=== PATIENT | female | born 1975 | race Caucasian/White ===

== ENCOUNTER 2016-05-07 05:45 | Inpatient (IN) | payer OTHER ==
[2016-05-07] VITALS (17 sets, daily range): BP systolic 122–145; RESP 16–22; TEMP 97.1–99.1
[~2016-05-07] VITALS: Ht 172.7 cm; Wt 74.8 kg
[2016-05-07] MEDS ORDERED: BACITRACIN 50,000 UNITS INJ IRRIG ONE (09:25)
[2016-05-07] MEDS ORDERED: ROCURONIUM 50 MG VIAL IV ONE (09:33)
[2016-05-07] MEDS ORDERED: DILAUDID 1 MG/ML AMP IV ONE (09:33)
[2016-05-07] MEDS ORDERED: GLYCOPYRROLATE 0.2 MG/ML VIAL IV ONE (09:33)
[2016-05-07] MEDS ORDERED: ACETAMINOPHEN 1,000 MG/100 ML IV ONE (09:33)
[2016-05-07] MEDS ORDERED: ONDANSETRON 4 MG VIAL IV PUSH ONE (09:33)
[2016-05-07] MEDS ORDERED: LIDOCAINE 2% SYR 5 ML IV ONE (09:33)
[2016-05-07] MEDS ORDERED: DEXAMETHASONE 4 MG/ML VIAL IV ONE (09:33)
[2016-05-07] MEDS ORDERED: PROPOFOL 20 ML PER ML IV ONE (09:33)
[2016-05-07] MEDS ORDERED: NEOSTIGMINE 10 MG/10 ML VIAL IV ONE (09:33)
[2016-05-07] MEDS ORDERED: FENTANYL 100 MCG/2 ML AMP IV ONE (09:33)
[2016-05-07] MEDS ORDERED: MAG HYDROX 30 ML UDC PO PRN (10:10)
[2016-05-07] MEDS ORDERED: BISACODYL 10 MG SUPP RECTAL PRN (10:10)
[2016-05-07] MEDS ORDERED: SALINE FLUSH 10 ML FLUSH PRN (10:10)
[2016-05-07] MEDS ORDERED: MORPHINE 2 MG/ML SYR IV PRN (10:10)
[2016-05-07] MEDS ORDERED: BISACODYL EC 5 MG TAB PO PRN (10:10)
[2016-05-07] MEDS ORDERED: SODIUM CHLORIDE 0.9% 1,000 ML IV SCH (10:10)
[2016-05-07] MEDS ORDERED: OXYCODONE/APAP 7.5/325 TAB PO PRN (10:40)
[2016-05-07] MEDS: DILAUDID 1 MG/ML AMP IV PRN ×2 (11:38→20:37)
[2016-05-07] MEDS: ONDANSETRON 4 MG VIAL IV PRN ×2 (11:46→20:34)
[2016-05-07] MEDS ORDERED: DEXTROSE 50% SYRINGE 50 ML IV PRN (18:30)
[2016-05-07] MEDS ORDERED: GLUCAGON 1 MG VIAL IM PRN (18:30)
[2016-05-07] MEDS ORDERED: CEFAZOLIN 2,000 MG in SODIUM CHLORIDE 0.9% 100 ML IV ONE (19:25)
[2016-05-07] MEDS: SALINE FLUSH 10 ML FLUSH SCH (20:33)
[2016-05-08] VITALS (17 sets, daily range): BP systolic 129–162; RESP 16–20; TEMP 97.7–99.3
[2016-05-08] MEDS: ONDANSETRON 4 MG VIAL IV PRN ×2 (05:49→17:37)
[2016-05-08] MEDS ORDERED: LACT RINGERS 1,000 ML IV SCH (06:00)
[2016-05-08] MEDS ORDERED: MIDAZOLAM 2 MG/2 ML INJ IV ONE ×2 (06:00→07:15)
[2016-05-08] MEDS ORDERED: SODIUM CHLORIDE 0.9% FLUSH BAG 500 ML IV SCH (06:00)
[2016-05-08] MEDS ORDERED: LIDOCAINE 1% BUFFERED 1 ML SYR INTRADERM PRN (07:15)
[2016-05-08] MEDS: SALINE FLUSH 10 ML FLUSH SCH ×2 (08:00→20:00)
[2016-05-08] MEDS ORDERED: DILAUDID 1 MG/ML AMP IV PRN (08:30)
[2016-05-08] MEDS ORDERED: MORPHINE 4 MG/ML SYR IV PRN (08:30)
[2016-05-08] MEDS ORDERED: OXYCODONE 5 MG TAB PO PRN (08:30)
[2016-05-08] MEDS ORDERED: MEPERIDINE 25 MG/ML IV PRN (08:30)
[2016-05-08] MEDS ORDERED: MORPHINE 2 MG/ML SYR IV PRN (08:30)
[2016-05-08] MEDS ORDERED: ONDANSETRON 4 MG VIAL IV PRN (08:30)
[2016-05-08] MEDS ORDERED: GLUCAGON 1 MG VIAL IM PRN (08:50)
[2016-05-08] MEDS ORDERED: ONDANSETRON 4 MG TAB PO PRN (08:50)
[2016-05-08] MEDS ORDERED: MAG HYDROX 30 ML UDC PO PRN (08:50)
[2016-05-08] MEDS ORDERED: ZOLPIDEM 5 MG TAB PO PRN (08:50)
[2016-05-08] MEDS ORDERED: SALINE FLUSH 10 ML FLUSH PRN (08:50)
[2016-05-08] MEDS ORDERED: DEXTROSE 50% SYRINGE 50 ML IV PRN (08:50)
[2016-05-08] MEDS: MAG HYDROX 30 ML UDC PO SCH (09:00)
[2016-05-08] MEDS: DOCUSATE SOD 100 MG CAP PO SCH ×2 (09:00→20:58)
[2016-05-08] MEDS: MULTIVITS/MINERALS (THERAGRAN M) TAB PO SCH (09:00)
[2016-05-08] MEDS: CEFAZOLIN 2,000 MG in SODIUM CHLORIDE 0.9% 100 ML IV SCH ×2 (12:32→18:01)
[2016-05-08] MEDS: LACT RINGERS 1,000 ML IV SCH (15:54)
[2016-05-08] MEDS: OXYCODONE/APAP 7.5/325 TAB PO PRN (17:38)
[2016-05-08] MEDS ORDERED: MIDAZOLAM 2 MG/2 ML INJ ONE (19:48)
[2016-05-08] MEDS: SENNA 8.6 MG TAB PO SCH (20:58)
[2016-05-09] MEDS: CEFAZOLIN 2,000 MG in SODIUM CHLORIDE 0.9% 100 ML IV SCH ×2 (00:42→06:20)
[2016-05-09 03:52] VITALS: BP_SYST 140; RESP 16; TEMP 98.6
[2016-05-09] MEDS: LACT RINGERS 1,000 ML IV SCH (03:53)
[2016-05-09] MEDS: SODIUM CHLORIDE 0.9% FLUSH BAG 500 ML IV SCH (05:53)
[2016-05-09] MEDS: ENOXAPARIN 30 MG/0.3 ML SYR SUBQ SCH (06:22)
[2016-05-09] MEDS: CYCLOBENZAPRINE 10 MG TAB PO PRN ×2 (07:31→19:39)
[2016-05-09 07:34] VITALS: BP_SYST 140; RESP 26; TEMP 96.2
[2016-05-09] MEDS: SALINE FLUSH 10 ML FLUSH SCH ×2 (08:00→19:46)
[2016-05-09] MEDS: MAG HYDROX 30 ML UDC PO SCH (08:08)
[2016-05-09] MEDS: MULTIVITS/MINERALS (THERAGRAN M) TAB PO SCH (09:00)
[2016-05-09] MEDS: POLYETHYLENE GLYCOL 17 GM PACKET PO SCH (09:00)
[2016-05-09] MEDS: SENNA 8.6 MG TAB PO SCH ×2 (09:00→20:47)
[2016-05-09] MEDS: DOCUSATE SOD 100 MG CAP PO SCH ×2 (09:00→20:47)
[2016-05-09] MEDS ORDERED: BISACODYL 10 MG SUPP RECTAL PRN (09:50)
[2016-05-09] MEDS ORDERED: FLEET ENEMA 132 ML BTL RECTAL PRN (09:50)
[2016-05-09 11:44] VITALS: BP_SYST 150; RESP 24; TEMP 98.3
[2016-05-09] MEDS: OXYCODONE/APAP 7.5/325 TAB PO PRN (13:36)
[2016-05-09 15:38] VITALS: BP_SYST 149; RESP 22; TEMP 97.9
[2016-05-09 15:41] VITALS: Ht 172.7 cm; Wt 74.8 kg
[2016-05-09 19:58] VITALS: BP_SYST 136; RESP 18; TEMP 98.1
[2016-05-10] VITALS (10 sets, daily range): BP systolic 129–151; RESP 16–20; TEMP 97.7–99
[2016-05-10] MEDS: OXYCODONE/APAP 7.5/325 TAB PO PRN ×2 (04:56→10:48)
[2016-05-10] MEDS: SODIUM CHLORIDE 0.9% FLUSH BAG 500 ML IV SCH (05:17)
[2016-05-10] MEDS: ENOXAPARIN 30 MG/0.3 ML SYR SUBQ SCH (06:42)
[2016-05-10] MEDS: MAG HYDROX 30 ML UDC PO SCH (08:54)
[2016-05-10] MEDS: SALINE FLUSH 10 ML FLUSH SCH ×2 (08:55→20:40)
[2016-05-10] MEDS: DOCUSATE SOD 100 MG CAP PO SCH ×2 (08:56→20:40)
[2016-05-10] MEDS: POLYETHYLENE GLYCOL 17 GM PACKET PO SCH (08:56)
[2016-05-10] MEDS: SENNA 8.6 MG TAB PO SCH ×2 (08:56→20:41)
[2016-05-10] MEDS: MULTIVITS/MINERALS (THERAGRAN M) TAB PO SCH (08:57)
[2016-05-10] MEDS ORDERED: SODIUM CHLORIDE 0.9% 1,000 ML IV ONE (09:55)
[2016-05-10] MEDS ORDERED: OPTIRAY 350 100 ML VIAL HMH IV ONE (16:18)
[2016-05-10] MEDS: *HOME MEDS KEPT IN PHARMACY XX SCH (19:40)
[2016-05-10] MEDS: CYCLOBENZAPRINE 10 MG TAB PO PRN (22:57)
[2016-05-11 03:23] VITALS: BP_SYST 144; TEMP 98.8
[2016-05-11 03:24] VITALS: RESP 20
[2016-05-11] MEDS: SODIUM CHLORIDE 0.9% FLUSH BAG 500 ML IV SCH (05:57)
[2016-05-11] MEDS: ENOXAPARIN 30 MG/0.3 ML SYR SUBQ SCH (06:34)
[2016-05-11 07:50] VITALS: BP_SYST 152; RESP 18; TEMP 97.9
[2016-05-11] MEDS: SALINE FLUSH 10 ML FLUSH SCH ×2 (07:55→20:50)
[2016-05-11] MEDS: *HOME MEDS KEPT IN PHARMACY XX SCH ×2 (07:56→20:00)
[2016-05-11] MEDS: MULTIVITS/MINERALS (THERAGRAN M) TAB PO SCH (07:58)
[2016-05-11] MEDS: POLYETHYLENE GLYCOL 17 GM PACKET PO SCH (07:59)
[2016-05-11] MEDS: SENNA 8.6 MG TAB PO SCH ×2 (07:59→21:00)
[2016-05-11] MEDS: DOCUSATE SOD 100 MG CAP PO SCH ×2 (07:59→21:00)
[2016-05-11] MEDS: MAG HYDROX 30 ML UDC PO SCH (08:00)
[2016-05-11] MEDS: OXYCODONE/APAP 7.5/325 TAB PO PRN ×2 (09:09→21:00)
[2016-05-11] MEDS ORDERED: METOPROLOL TART 25 MG TAB PO SCH (09:15)
[2016-05-11] MEDS ORDERED: MISSING DOSE XX ONE (10:30)
[2016-05-11 11:46] VITALS: BP_SYST 149; RESP 20; TEMP 97.3
[2016-05-11 15:29] VITALS: BP_SYST 125; RESP 16; TEMP 97.9
[2016-05-11] MEDS: DILAUDID 1 MG/ML AMP IV PRN ×2 (20:20→22:42)
[2016-05-11] MEDS: CYCLOBENZAPRINE 10 MG TAB PO PRN (20:21)
[2016-05-11] MEDS: METOPROLOL TART 25 MG TAB PO SCH (20:21)
[2016-05-11] MEDS: ONDANSETRON 4 MG VIAL IV PRN (20:50)
[2016-05-11] MEDS ORDERED: LEVEMIR INSULIN SUBQ SCH (21:00)
[2016-05-11 22:36] VITALS: BP_SYST 126; RESP 16; TEMP 98.1
[2016-05-11] MEDS ORDERED: PHARMACY TO DOSE VANCOMYCIN IV SCH (22:45)
[2016-05-12] MEDS: SODIUM CHLORIDE 0.9% FLUSH BAG 500 ML IV SCH (00:30)
[2016-05-12] MEDS: VANCOMYCIN 1,000 MG in SODIUM CHLORIDE 0.9% 250 ML IV SCH ×4 (00:35→23:13)
[2016-05-12] MEDS: DILAUDID 1 MG/ML AMP IV PRN ×2 (01:55→03:47)
[2016-05-12 03:36] VITALS: BP_SYST 130; RESP 16; TEMP 98.3
[2016-05-12] MEDS: ENOXAPARIN 30 MG/0.3 ML SYR SUBQ SCH (06:54)
[2016-05-12] MEDS: OXYCODONE/APAP 7.5/325 TAB PO PRN ×2 (06:58→20:59)
[2016-05-12 07:18] VITALS: BP_SYST 156; RESP 22; TEMP 98.1
[2016-05-12] MEDS: *HOME MEDS KEPT IN PHARMACY XX SCH ×2 (08:00→20:00)
[2016-05-12] MEDS: POLYETHYLENE GLYCOL 17 GM PACKET PO SCH (08:06)
[2016-05-12] MEDS: MULTIVITS/MINERALS (THERAGRAN M) TAB PO SCH (08:06)
[2016-05-12] MEDS: SALINE FLUSH 10 ML FLUSH SCH ×2 (08:06→20:00)
[2016-05-12] MEDS: METOPROLOL TART 25 MG TAB PO SCH ×2 (08:06→20:57)
[2016-05-12] MEDS: SENNA 8.6 MG TAB PO SCH ×2 (08:06→20:57)
[2016-05-12] MEDS: MAG HYDROX 30 ML UDC PO SCH (08:06)
[2016-05-12] MEDS: DOCUSATE SOD 100 MG CAP PO SCH ×2 (08:08→20:57)
[2016-05-12 11:05] VITALS: BP_SYST 132; RESP 20; TEMP 98.2
[2016-05-12] MEDS: BACITRACIN OINT TOPICAL SCH ×2 (13:05→21:00)
[2016-05-12 15:00] VITALS: BP_SYST 142; RESP 20; TEMP 98.7
[2016-05-12] MEDS: SODIUM CHLORIDE 0.9% 1,000 ML IV SCH (15:18)
[2016-05-12 19:34] VITALS: BP_SYST 148; RESP 18; TEMP 98.2
[2016-05-12] MEDS ORDERED: LEVEMIR INSULIN SUBQ SCH (21:00)
[2016-05-12 22:46] VITALS: BP_SYST 138; RESP 20; TEMP 97.3
[2016-05-13 03:48] VITALS: BP_SYST 141; RESP 18; TEMP 98.7
[2016-05-13] MEDS: SODIUM CHLORIDE 0.9% 1,000 ML IV SCH (04:25)
[2016-05-13] MEDS: SODIUM CHLORIDE 0.9% FLUSH BAG 500 ML IV SCH (06:00)
[2016-05-13] MEDS: VANCOMYCIN 1,000 MG in SODIUM CHLORIDE 0.9% 250 ML IV SCH ×2 (06:10→17:34)
[2016-05-13] MEDS: ENOXAPARIN 30 MG/0.3 ML SYR SUBQ SCH (06:11)
[2016-05-13 07:20] VITALS: BP_SYST 148; RESP 24; TEMP 98.4
[2016-05-13] MEDS: SALINE FLUSH 10 ML FLUSH SCH ×2 (07:56→20:00)
[2016-05-13] MEDS: SENNA 8.6 MG TAB PO SCH ×2 (07:56→20:43)
[2016-05-13] MEDS: BACITRACIN OINT TOPICAL SCH ×2 (07:56→21:24)
[2016-05-13] MEDS: DOCUSATE SOD 100 MG CAP PO SCH ×2 (07:56→20:43)
[2016-05-13] MEDS: METOPROLOL TART 25 MG TAB PO SCH ×2 (07:56→21:24)
[2016-05-13] MEDS: *HOME MEDS KEPT IN PHARMACY XX SCH ×2 (07:56→20:00)
[2016-05-13] MEDS: MULTIVITS/MINERALS (THERAGRAN M) TAB PO SCH (07:56)
[2016-05-13] MEDS: MAG HYDROX 30 ML UDC PO SCH (07:57)
[2016-05-13] MEDS: POLYETHYLENE GLYCOL 17 GM PACKET PO SCH (07:57)
[2016-05-13] MEDS: OXYCODONE/APAP 7.5/325 TAB PO PRN (07:59)
[2016-05-13 11:33] VITALS: BP_SYST 126; RESP 22; TEMP 98.1
[2016-05-13 15:38] VITALS: BP_SYST 141; RESP 22; TEMP 98
[2016-05-13] MEDS: ONDANSETRON 4 MG VIAL IV PRN (19:36)
[2016-05-13] MEDS: DILAUDID 1 MG/ML AMP IV PRN ×2 (19:37→21:24)
[2016-05-13 19:48] VITALS: BP_SYST 147; RESP 18; TEMP 98.3
[2016-05-13] MEDS ORDERED: LEVEMIR INSULIN SUBQ SCH (21:00)
[2016-05-13 22:41] VITALS: BP_SYST 145; RESP 16; TEMP 98.7
[2016-05-14] MEDS: ONDANSETRON 4 MG VIAL IV PRN ×2 (01:54→12:17)
[2016-05-14] MEDS: CYCLOBENZAPRINE 10 MG TAB PO PRN (01:54)
[2016-05-14] MEDS: DILAUDID 1 MG/ML AMP IV PRN ×3 (01:55→07:00)
[2016-05-14] MEDS ORDERED: VANCOMYCIN 1,000 MG in SODIUM CHLORIDE 0.9% 250 ML IV SCH (02:00)
[2016-05-14 05:06] VITALS: BP_SYST 148; RESP 16; TEMP 98.9
[2016-05-14] MEDS: SODIUM CHLORIDE 0.9% FLUSH BAG 500 ML IV SCH (05:09)
[2016-05-14] MEDS: ENOXAPARIN 30 MG/0.3 ML SYR SUBQ SCH (06:59)
[2016-05-14 07:38] VITALS: BP_SYST 152; RESP 18; TEMP 99.2
[2016-05-14] MEDS: SALINE FLUSH 10 ML FLUSH SCH ×2 (08:00→20:00)
[2016-05-14] MEDS: *HOME MEDS KEPT IN PHARMACY XX SCH ×2 (08:00→20:39)
[2016-05-14] MEDS: POLYETHYLENE GLYCOL 17 GM PACKET PO SCH (08:38)
[2016-05-14] MEDS: DOCUSATE SOD 100 MG CAP PO SCH ×2 (08:39→21:00)
[2016-05-14] MEDS: SENNA 8.6 MG TAB PO SCH ×2 (08:39→21:00)
[2016-05-14] MEDS: MAG HYDROX 30 ML UDC PO SCH (08:44)
[2016-05-14] MEDS: METOPROLOL TART 25 MG TAB PO SCH ×2 (08:44→22:21)
[2016-05-14] MEDS: MULTIVITS/MINERALS (THERAGRAN M) TAB PO SCH (08:44)
[2016-05-14 12:00] VITALS: BP_SYST 128; RESP 18; TEMP 98
[2016-05-14] MEDS: OXYCODONE/APAP 7.5/325 TAB PO PRN (12:52)
[2016-05-14 16:30] VITALS: BP_SYST 137; RESP 20; TEMP 98
[2016-05-14] MEDS: BACITRACIN OINT TOPICAL SCH ×2 (17:44→22:22)
[2016-05-14 19:16] VITALS: BP_SYST 138; RESP 18; TEMP 99
[2016-05-14] MEDS ORDERED: TRIMETH/SULFAMETH 160/800 TAB PO SCH (21:00)
[2016-05-14] MEDS: LEVEMIR INSULIN SUBQ SCH (21:00)
[2016-05-14 22:46] VITALS: BP_SYST 148; RESP 16; TEMP 100
[2016-05-15] VITALS (7 sets, daily range): BP systolic 127–142; RESP 14–20; TEMP 98–98.8
[2016-05-15] MEDS: OXYCODONE/APAP 7.5/325 TAB PO PRN ×2 (02:14→21:27)
[2016-05-15] MEDS: SODIUM CHLORIDE 0.9% FLUSH BAG 500 ML IV SCH (05:20)
[2016-05-15] MEDS: ENOXAPARIN 30 MG/0.3 ML SYR SUBQ SCH (06:16)
[2016-05-15] MEDS: *HOME MEDS KEPT IN PHARMACY XX SCH ×2 (08:00→20:00)
[2016-05-15] MEDS: DOCUSATE SOD 100 MG CAP PO SCH ×2 (08:29→20:16)
[2016-05-15] MEDS: SENNA 8.6 MG TAB PO SCH ×2 (08:29→20:16)
[2016-05-15] MEDS: SALINE FLUSH 10 ML FLUSH SCH ×2 (09:38→20:15)
[2016-05-15] MEDS: CEFTRIAXONE 1 GM in SODIUM CHLORIDE 0.9% 50 ML IV SCH (09:39)
[2016-05-15] MEDS: METOPROLOL TART 25 MG TAB PO SCH ×2 (09:40→20:16)
[2016-05-15] MEDS: MULTIVITS/MINERALS (THERAGRAN M) TAB PO SCH (09:40)
[2016-05-15] MEDS: POLYETHYLENE GLYCOL 17 GM PACKET PO SCH (09:40)
[2016-05-15] MEDS: BACITRACIN OINT TOPICAL SCH ×2 (09:41→20:15)
[2016-05-15] MEDS: ONDANSETRON 4 MG VIAL IV PRN (09:48)
[2016-05-15] MEDS: DILAUDID 1 MG/ML AMP IV PRN (09:53)
[2016-05-15] MEDS: CYCLOBENZAPRINE 10 MG TAB PO PRN (20:15)
[2016-05-15] MEDS: LEVEMIR INSULIN SUBQ SCH (21:23)
[2016-05-16 03:34] VITALS: BP_SYST 134; RESP 20; TEMP 99
[2016-05-16] MEDS: OXYCODONE/APAP 7.5/325 TAB PO PRN ×2 (03:40→12:14)
[2016-05-16] MEDS: SODIUM CHLORIDE 0.9% FLUSH BAG 500 ML IV SCH (05:39)
[2016-05-16] MEDS: ENOXAPARIN 30 MG/0.3 ML SYR SUBQ SCH (05:39)
[2016-05-16] MEDS: *HOME MEDS KEPT IN PHARMACY XX SCH (08:00)
[2016-05-16] MEDS: SALINE FLUSH 10 ML FLUSH SCH (08:12)
[2016-05-16] MEDS: DOCUSATE SOD 100 MG CAP PO SCH (08:18)
[2016-05-16] MEDS: SENNA 8.6 MG TAB PO SCH (08:19)
[2016-05-16 08:20] VITALS: BP_SYST 138; RESP 22; TEMP 98.3
[2016-05-16] MEDS: CEFTRIAXONE 1 GM in SODIUM CHLORIDE 0.9% 50 ML IV SCH (08:20)
[2016-05-16] MEDS: MULTIVITS/MINERALS (THERAGRAN M) TAB PO SCH (08:20)
[2016-05-16] MEDS: POLYETHYLENE GLYCOL 17 GM PACKET PO SCH (08:21)
[2016-05-16] MEDS: BACITRACIN OINT TOPICAL SCH (08:21)
[2016-05-16] MEDS ORDERED: METOPROLOL TART 25 MG TAB PO SCH (09:00)
[2016-05-16 09:30] VITALS: TEMP 98
[2016-05-16 11:28] VITALS: BP_SYST 129; RESP 22; TEMP 98.5
[2016-05-16] MEDS: ONDANSETRON 4 MG VIAL IV PRN (12:13)
[2016-05-16 12:19] VITALS: BP_SYST 129; RESP 22; TEMP 98.5
== END 2016-05-16 13:07 | DRG 481 ==
LOC: 2NO 07:39 → ENPENDDIS 07:39
PROVIDERS: ADMIT Internal Medicine; ATTEND Internal Medicine
PROC: 0QS804Z Reposition Right Femoral Shaft with Internal Fixation Device, Open Approach (ICD-10-PCS; principal; 2016-05-08 07:28)
DX: M84.551A Pathological fracture in neoplastic disease, right femur, initial encounter for fracture (principal); C78.00 Secondary malignant neoplasm of unspecified lung; C79.51 Secondary malignant neoplasm of bone; N39.0 Urinary tract infection, site not specified; J98.11 Atelectasis; W19.XXXA Unspecified fall, initial encounter; C50.919 Malignant neoplasm of unspecified site of unspecified female breast; F32.9 Major depressive disorder, single episode, unspecified; F41.9 Anxiety disorder, unspecified; E11.9 Type 2 diabetes mellitus without complications; I10 Essential (primary) hypertension; Z87.891 Personal history of nicotine dependence; Z82.49 Family history of ischemic heart disease and other diseases of the circulatory system; Z79.84 Long term (current) use of oral hypoglycemic drugs; R00.0 Tachycardia, unspecified
CPT/HCPCS: 36430; 71260; 76000; 80048; 80202; 81001; 82947; 83036; 83735; 84132; 84439; 84443; 85014; 85018; 85025; 85610; 85730; 86850; 86900; 86901; 86923; 87040; 87071; 87077; 87088; 87186; 88305; 88311; 88341; 88342; 94762; 94799; 99232; 99233; 99239

== ENCOUNTER 2016-05-17 08:48 | Inpatient (IN) | payer OTHER ==
[~2016-05-17] VITALS: Ht 172.7 cm; Wt 78.2 kg
[2016-05-17] MEDS ORDERED: Ibuprofen 600 MG TAB PO PRN (13:50)
[2016-05-17] MEDS ORDERED: SALINE FLUSH 10 ML FLUSH PRN (13:50)
[2016-05-17] MEDS ORDERED: ACETAMINOPHEN 325 MG TAB PO PRN (13:50)
[2016-05-17] MEDS ORDERED: BISACODYL EC 5 MG TAB PO PRN (13:50)
[2016-05-17] MEDS ORDERED: ALU/MAG/SIM 30 ML UDC PO PRN (13:50)
[2016-05-17] MEDS ORDERED: BISACODYL 10 MG SUPP RECTAL PRN (13:50)
[2016-05-17] MEDS ORDERED: SODIUM CHLORIDE 0.9% 1,000 ML IV ONE (14:30)
[2016-05-17 15:22] VITALS: TEMP 98.2
[2016-05-17 15:23] VITALS: BP_SYST 144; RESP 24
[2016-05-17] MEDS: LACT RINGERS 1,000 ML IV SCH (17:13)
[2016-05-17 18:02] VITALS: Ht 172.7 cm; Wt 78.2 kg
[2016-05-17] MEDS ORDERED: OXYCODONE/APAP 5/325 TAB PO PRN (18:05)
[2016-05-17] MEDS ORDERED: GLUCAGON 1 MG VIAL IM PRN (18:10)
[2016-05-17] MEDS ORDERED: DEXTROSE 50% SYRINGE 50 ML IV PRN (18:10)
[2016-05-17] MEDS: POLYETHYLENE GLYCOL 17 GM PACKET PO SCH (18:13)
[2016-05-17] MEDS: CITALOPRAM 20 MG TAB PO SCH (18:42)
[2016-05-17 19:26] VITALS: BP_SYST 140; TEMP 98.6
[2016-05-17] MEDS: ONDANSETRON 4 MG VIAL IV PRN (20:20)
[2016-05-17] MEDS: SALINE FLUSH 10 ML FLUSH SCH (20:37)
[2016-05-17] MEDS ORDERED: CYCLOBENZAPRINE 10 MG TAB PO SCH (21:00)
[2016-05-17] MEDS ORDERED: METOPROLOL TART 50 MG TAB PO SCH (21:00)
[2016-05-17 23:34] VITALS: BP_SYST 140; RESP 17; TEMP 99.3
[2016-05-18] VITALS (18 sets, daily range): BP systolic 135–155; RESP 18–96; TEMP 97.9–99.8
[2016-05-18] MEDS: ONDANSETRON 4 MG VIAL IV PRN (00:05)
[2016-05-18] MEDS: LACT RINGERS 1,000 ML IV SCH (01:43)
[2016-05-18] MEDS ORDERED: cloNIDine 0.1 MG TAB ONE (02:26)
[2016-05-18] MEDS: SODIUM CHLORIDE 0.9% FLUSH BAG 500 ML IV SCH (05:58)
[2016-05-18] MEDS: SALINE FLUSH 10 ML FLUSH SCH ×2 (08:00→20:11)
[2016-05-18] MEDS: CITALOPRAM 20 MG TAB PO SCH (08:26)
[2016-05-18] MEDS: POLYETHYLENE GLYCOL 17 GM PACKET PO SCH ×2 (09:00→16:53)
[2016-05-18] MEDS: MULTIVITS/MINERALS (THERAGRAN M) TAB PO SCH (15:33)
[2016-05-18] MEDS: METOPROLOL TART 50 MG TAB PO SCH (20:10)
[2016-05-19] VITALS (9 sets, daily range): BP systolic 112–154; RESP 17–18; TEMP 97.5–98.8
[2016-05-19] MEDS: SODIUM CHLORIDE 0.9% FLUSH BAG 500 ML IV SCH ×2 (05:16→23:50)
[2016-05-19] MEDS: SALINE FLUSH 10 ML FLUSH SCH ×2 (08:50→20:43)
[2016-05-19] MEDS: METOPROLOL TART 50 MG TAB PO SCH ×2 (08:51→20:42)
[2016-05-19] MEDS: CITALOPRAM 20 MG TAB PO SCH (08:51)
[2016-05-19] MEDS: MULTIVITS/MINERALS (THERAGRAN M) TAB PO SCH (08:51)
[2016-05-19] MEDS: POLYETHYLENE GLYCOL 17 GM PACKET PO SCH (08:51)
[2016-05-19] MEDS ORDERED: ACETAMINOPHEN 325 MG TAB PO ONE (09:26)
[2016-05-19] MEDS ORDERED: DIPHENHYDRAMINE 25 MG CAP PO ONE (09:27)
[2016-05-19] MEDS ORDERED: Furosemide 20 MG/2 ML VIAL IV ONE (09:35)
[2016-05-19] MEDS: FLUCONAZOLE 100 MG TAB PO SCH (11:26)
[2016-05-20] VITALS (12 sets, daily range): BP systolic 136–156; RESP 18–24; TEMP 97.2–98.6
[2016-05-20] MEDS: ONDANSETRON 4 MG VIAL IV PRN (00:18)
[2016-05-20] MEDS: SALINE FLUSH 10 ML FLUSH SCH ×2 (08:40→20:36)
[2016-05-20] MEDS: METOPROLOL TART 50 MG TAB PO SCH ×2 (08:41→20:35)
[2016-05-20] MEDS: POLYETHYLENE GLYCOL 17 GM PACKET PO SCH ×3 (08:41→17:07)
[2016-05-20] MEDS: CITALOPRAM 20 MG TAB PO SCH (08:41)
[2016-05-20] MEDS: FLUCONAZOLE 100 MG TAB PO SCH (08:41)
[2016-05-20] MEDS: MULTIVITS/MINERALS (THERAGRAN M) TAB PO SCH ×3 (08:41→09:00)
[2016-05-20] MEDS: CYCLOBENZAPRINE 10 MG TAB PO PRN (17:06)
[2016-05-20] MEDS ORDERED: MISSING DOSE XX ONE (17:20)
[2016-05-21] VITALS (7 sets, daily range): BP systolic 122–155; RESP 18–20; TEMP 97.1–98.3
[2016-05-21] MEDS: SODIUM CHLORIDE 0.9% FLUSH BAG 500 ML IV SCH (06:00)
[2016-05-21] MEDS: MULTIVITS/MINERALS (THERAGRAN M) TAB PO SCH (09:00)
[2016-05-21] MEDS: FLUCONAZOLE 100 MG TAB PO SCH (10:02)
[2016-05-21] MEDS: SALINE FLUSH 10 ML FLUSH SCH ×2 (10:02→20:34)
[2016-05-21] MEDS: METOPROLOL TART 50 MG TAB PO SCH ×2 (10:03→20:34)
[2016-05-21] MEDS: CITALOPRAM 20 MG TAB PO SCH (10:03)
[2016-05-21] MEDS: POLYETHYLENE GLYCOL 17 GM PACKET PO SCH (10:04)
[2016-05-21] MEDS: amLODIPine 5 MG TAB PO SCH (14:25)
[2016-05-21] MEDS: ENOXAPARIN 40 MG/0.4 ML SYR SUBQ SCH (14:26)
[2016-05-21] MEDS: ONDANSETRON 4 MG VIAL IV PRN (14:39)
[2016-05-22] MEDS: SODIUM CHLORIDE 0.9% FLUSH BAG 500 ML IV SCH (05:12)
[2016-05-22 05:51] VITALS: BP_SYST 128; RESP 18; TEMP 97.7
[2016-05-22 07:12] VITALS: BP_SYST 150; RESP 16; TEMP 97.4
[2016-05-22] MEDS: POLYETHYLENE GLYCOL 17 GM PACKET PO SCH (09:00)
[2016-05-22] MEDS: MULTIVITS/MINERALS (THERAGRAN M) TAB PO SCH (09:00)
[2016-05-22] MEDS: ENOXAPARIN 40 MG/0.4 ML SYR SUBQ SCH (09:12)
[2016-05-22] MEDS: CITALOPRAM 20 MG TAB PO SCH (09:13)
[2016-05-22] MEDS: METOPROLOL TART 50 MG TAB PO SCH ×2 (09:13→21:15)
[2016-05-22] MEDS: amLODIPine 5 MG TAB PO SCH (09:13)
[2016-05-22] MEDS: FLUCONAZOLE 100 MG TAB PO SCH (09:13)
[2016-05-22] MEDS: SALINE FLUSH 10 ML FLUSH SCH ×2 (09:14→21:16)
[2016-05-22 10:48] VITALS: BP_SYST 151; RESP 18; TEMP 97.9
[2016-05-22 16:31] VITALS: BP_SYST 142; RESP 20; TEMP 98.3
[2016-05-22 19:56] VITALS: BP_SYST 154; RESP 20; TEMP 98.1
[2016-05-22 23:47] VITALS: BP_SYST 148; RESP 20; TEMP 98.1
[2016-05-23] MEDS: SODIUM CHLORIDE 0.9% FLUSH BAG 500 ML IV SCH (02:49)
[2016-05-23 02:51] VITALS: BP_SYST 149; RESP 20; TEMP 98.2
[2016-05-23 07:12] VITALS: BP_SYST 156; RESP 20; TEMP 97.2
[2016-05-23] MEDS: MULTIVITS/MINERALS (THERAGRAN M) TAB PO SCH (09:00)
[2016-05-23] MEDS: POLYETHYLENE GLYCOL 17 GM PACKET PO SCH (09:00)
[2016-05-23] MEDS: SALINE FLUSH 10 ML FLUSH SCH ×2 (09:31→20:45)
[2016-05-23] MEDS: ONDANSETRON 4 MG VIAL IV PRN (09:32)
[2016-05-23] MEDS: amLODIPine 10 MG TAB PO SCH (09:33)
[2016-05-23] MEDS: CITALOPRAM 20 MG TAB PO SCH (09:33)
[2016-05-23] MEDS: METOPROLOL TART 50 MG TAB PO SCH ×2 (09:33→20:45)
[2016-05-23] MEDS: FLUCONAZOLE 100 MG TAB PO SCH (09:33)
[2016-05-23] MEDS: ENOXAPARIN 40 MG/0.4 ML SYR SUBQ SCH (09:33)
[2016-05-23 11:04] VITALS: BP_SYST 144; RESP 20; TEMP 98.1
[2016-05-23] MEDS ORDERED: Furosemide 20 MG/2 ML VIAL IV ONE (11:10)
[2016-05-23] MEDS ORDERED: EPOETIN 40,000 UNIT VIAL SUBQ ONE (11:30)
[2016-05-23] MEDS: KCL CR 20 MEQ TAB PO SCH (13:09)
[2016-05-23 15:26] VITALS: BP_SYST 150; RESP 20; TEMP 97.8
[2016-05-23 19:44] VITALS: BP_SYST 143; RESP 20; TEMP 98.2
[2016-05-24] MEDS: SODIUM CHLORIDE 0.9% FLUSH BAG 500 ML IV SCH (02:41)
[2016-05-24 04:12] VITALS: BP_SYST 153; RESP 20; TEMP 98.3
[2016-05-24 07:55] VITALS: BP_SYST 159; BP_SYST 170; RESP 20; TEMP 98.2
[2016-05-24] MEDS: KCL CR 20 MEQ TAB PO SCH (08:12)
[2016-05-24] MEDS: SALINE FLUSH 10 ML FLUSH SCH (08:12)
[2016-05-24] MEDS: CITALOPRAM 20 MG TAB PO SCH (08:12)
[2016-05-24] MEDS: METOPROLOL TART 50 MG TAB PO SCH (08:12)
[2016-05-24] MEDS: FLUCONAZOLE 100 MG TAB PO SCH (08:13)
[2016-05-24] MEDS: amLODIPine 10 MG TAB PO SCH (08:13)
[2016-05-24] MEDS: POLYETHYLENE GLYCOL 17 GM PACKET PO SCH (08:13)
[2016-05-24] MEDS: MULTIVITS/MINERALS (THERAGRAN M) TAB PO SCH (08:13)
[2016-05-24] MEDS: CYCLOBENZAPRINE 10 MG TAB PO PRN (08:13)
[2016-05-24] MEDS: ENOXAPARIN 40 MG/0.4 ML SYR SUBQ SCH (09:00)
[2016-05-24 11:13] VITALS: BP_SYST 130; RESP 18; TEMP 98.2
[2016-05-24] MEDS: KCL CR 10 MEQ CAP PO ONE ×2 (12:20→13:38)
[2016-05-24] MEDS: POTASSIUM CHLORIDE PREMIX 50 ML IV SCH ×2 (13:38→15:22)
[2016-05-24] MEDS ORDERED: KCL 20 MEQ/15 ML UDC PO ONE (13:50)
[2016-05-24 15:45] VITALS: BP_SYST 130; RESP 18; TEMP 98.2
[2016-05-24 17:03] VITALS: BP_SYST 130; RESP 18; TEMP 98.2
[2016-05-24 17:04] VITALS: BP_SYST 130; RESP 18; TEMP 98.2
== END 2016-05-24 18:30 | DRG 812 ==
LOC: ENRESERV → ENRESERVDT → ENRESERVTM → ER 08:48 → ENPENDDIS 14:01 → EMR 14:01 → PCU2 15:21 → 4NT 05-19 22:07
PROVIDERS: ADMIT Internal Medicine; ATTEND Internal Medicine
DX: T80.919A Hemolytic transfusion reaction, unspecified incompatibility, unspecified as acute or delayed, initial encounter (principal); C78.00 Secondary malignant neoplasm of unspecified lung; C79.51 Secondary malignant neoplasm of bone; C79.70 Secondary malignant neoplasm of unspecified adrenal gland; D64.9 Anemia, unspecified; C50.919 Malignant neoplasm of unspecified site of unspecified female breast; E11.9 Type 2 diabetes mellitus without complications; I10 Essential (primary) hypertension; F41.9 Anxiety disorder, unspecified; F32.9 Major depressive disorder, single episode, unspecified; S72.301D Unspecified fracture of shaft of right femur, subsequent encounter for closed fracture with routine healing; Z51.5 Encounter for palliative care
CPT/HCPCS: 36415; 36430; 73700; 74176; 80048; 80053; 81001; 82607; 82728; 82746; 82947; 83090; 83540; 83615; 83921; 84466; 85007; 85025; 85027; 85046; 86850; 86870; 86880; 86885; 86900; 86901; 86902; 86905; 86922; 86945; 87088; 93970; 93971; 94799; 99232; 99233